=== PATIENT | female | born 1960 | race Caucasian/White ===

== ENCOUNTER 2017-08-17 17:35 | Emergency (ER) | payer BC ==
[2017-08-17 17:35] VITALS: BMI 28.9
[2017-08-17] MEDS ORDERED: Oxycodone/Acetaminophen 5/325 mg Tab PO STA (17:57)
[2017-08-17] MEDS ORDERED: Oxycodone/Acetaminophen 5/325 mg Tab ONE (18:05)
--- NOTE | 2017-08-17 18:21 | C.PDOC ---
History Of Present Illness 56-year-old female, presents to the emergency department with complaints of 10- day hx of right-upper shoulder and chest wall pain, that is worse with movement. Patient states she is taking Motrin with minimal relief. Patient is right hand dominant. Denies injuries, cough, trauma, or any other associated symptoms. No other complaints at this time. Chief Complaint (Nursing): Upper Extremity Problem/Injury History Per: Patient History/Exam Limitations: no limitations Current Symptoms Are (Timing): Still Present Past Medical History Reviewed: Historical Data, Nursing Documentation, Vital Signs Vital Signs: Last Vital Signs Temp 97.4 F L 08/17/17 17:38 Pulse 65 08/17/17 17:38 Resp 19 08/17/17 17:38 BP 123/80 08/17/17 17:38 Pulse Ox 100 08/17/17 18:31 - Medical History PMH: Back Problems (herniated disc), Kidney Stones Surgical History: Cholecystectomy, - [facility] Procedures D & C [facility] (03/10/14) Family History: States: No Known Family Hx - Social History Hx Tobacco Use: No Hx Alcohol Use: No Hx Substance Use: No - Immunization History Hx Tetanus Toxoid Vaccination: No Hx Influenza Vaccination: No Hx Pneumococcal Vaccination: No Review Of Systems Cardiovascular: Positive for: Chest Pain Musculoskeletal: Positive for: Shoulder Pain (right) Physical Exam - Physical Exam Appears: Non-toxic, No Acute Distress Skin: Warm, Dry, No Rash Nose: Normal Oral Mucosa: Moist Lips: Normal Appearing Neck: Normal ROM Chest: Symmetrical, Tenderness (chest wall) Cardiovascular: Rhythm Regular, No Murmur Respiratory: Normal Breath Sounds, No Accessory Muscle Use Extremity: Normal ROM, Other (right anterior shoulder tenderness. Worse w/ movement of right arm) Neurological/Psych: Oriented x3, Normal Speech ED Course And Treatment ECG: Interpreted By Me, Viewed By Me ECG Rhythm: Sinus Rhythm ECG Interpretation: No Acute Changes Interpretation Of ECG: Normal intervals Rate From EC O2 Sat by Pulse Oximetry: 100 - Radiology CXR: Interpreted by Me, Viewed By Me CXR Interpretation: Yes: No Acute Disease - Other Rad XR Shouder: Right X-Ray: Viewed By Me, Read By Radiologist Interpretation: No active disease Disposition - Disposition Disposition: HOME/ ROUTINE Disposition Time: 18:35 Condition: IMPROVED Additional Instructions: follow up with your doctor in 2 days call to make an appointment take medications as prescribed return to hospital if symptoms worsens or progress Prescriptions: Acetaminophen/Codeine [Tylenol/Codeine 300 MG/30 MG] 1 tab PO Q6H PRN #12 tab PRN Reason: Pain, Severe (8-10) Naproxen [Naprosyn] 500 mg PO BID PRN #16 tab PRN Reason: Pain, Moderate (4-7) Instructions: Musculoskeletal Pain (ED) - Clinical Impression Clinical Impression: Shoulder pain - Scribe Statement The provider has reviewed the documentation as recorded by the Scribe All medical record entries made by the Scribe were at my direction and personally dictated by me. I have reviewed the chart and agree that the record accurately reflects my personal performance of the history, physical exam, medical decision making, and the department course for this patient. I have also personally directed, reviewed, and agree with the discharge instructions and disposition.
--- NOTE | 2017-08-17 18:30 | C.PDOC ---
Chief Complaint (Nursing): Upper Extremity Problem/Injury Past Medical History Vital Signs: Last Vital Signs Temp 97.4 F L 08/17/17 17:38 Pulse 65 08/17/17 17:38 Resp 19 08/17/17 17:38 BP 123/80 08/17/17 17:38 Pulse Ox 100 08/17/17 17:38 - Medical History PMH: Back Problems (herniated disc), Kidney Stones Surgical History: Cholecystectomy, - [facility] Procedures D & C [facility] (03/10/14) Family History: States: Unknown Family Hx - Social History Hx Tobacco Use: No Hx Alcohol Use: No Hx Substance Use: No - Immunization History Hx Tetanus Toxoid Vaccination: No Hx Influenza Vaccination: No Hx Pneumococcal Vaccination: No ED Course And Treatment O2 Sat by Pulse Oximetry: 100 Disposition - Disposition
[2017-08-17 18:44] VITALS: BP 116/68; PULSE 69; RESP 18; TEMP 98.2; O2SAT 98
--- NOTE | 2017-08-18 08:55 | RAD ---
HISTORY: cough COMPARISON: No prior. TECHNIQUE: Chest PA and lateral FINDINGS: LUNGS: Diffuse increased chronic interstitial lung markings. Nodular and consolidative changes at the left lung base. Bibasilar breast and nipple shadows. Right apical pleural thickening. PLEURA: No significant pleural effusion identified. No pneumothorax apparent. CARDIOVASCULAR: Normal. OSSEOUS STRUCTURES: No significant abnormalities. VISUALIZED UPPER ABDOMEN: Surgical clips in the upper abdomen. OTHER FINDINGS: None. IMPRESSION: Diffuse increased chronic interstitial lung markings. Nodular and consolidative changes at the left lung base. Bibasilar breast and nipple shadows. Right apical pleural thickening.
--- NOTE | 2017-08-18 08:56 | RAD ---
Right shoulder three views History: Shoulder pain. Comparison: None available. Findings: Mild narrowing of the right glenohumeral joint space. No evidence for acute displaced fracture or dislocation. Impression: Mild degenerative changes. If pain persists, consider MRI.
== END 2017-08-17 18:44 | disposition home or self-care (01) ==
LOC: C.ER 17:35
DX: M25.511 Pain in right shoulder (principal)

== ENCOUNTER 2017-11-11 19:21 | Emergency (ER) | payer BC ==
[2017-11-11 19:22] VITALS: BMI 28.9
[2017-11-11] MEDS ORDERED: Sodium Chloride 0.9% 1,000 ML IV ONE (20:12)
[2017-11-11 21:04] LABS: BASO # 0.1 K/uL (0.0-0.2); BASO % 0.9 % (0.0-2.0); EOS # 0.1 K/uL (0.0-0.7); EOS % 1.3 % (0.0-4.0); HEMOGLOBIN 13.3 g/dL (11.0-16.0); LYMPH # 0.9 K/uL (1.0-4.3); LYMPH % 11.9 % (20.0-40.0); MEAN CELL VOLUME 92.9 fL (81.0-99.0); MEAN CORPUSCULAR HEMOGLOBIN 31.7 pg (27.0-31.0); MEAN CORPUSCULAR HGB CONC 34.2 g/dL (33.0-37.0); MEAN PLATELET VOLUME 9.8 fL (7.2-11.7); MONO # 0.5 K/uL (0.0-0.8); MONO % 6.7 % (0.0-10.0); NEUT # 5.7 K/uL (1.8-7.0); NEUT % 79.2 % (50.0-75.0); RBC 4.19 Mil/uL (3.80-5.20); RED CELL DISTRIBUTION WIDTH 13.4 % (11.5-14.5); WHITE BLOOD COUNT 7.1 K/uL (4.8-10.8)
--- NOTE | 2017-11-11 21:08 | C.PDOC ---
History Of Present Illness 57 year old female with no relevant PMHx presents to the ED c/o non productive cough, fever, and body aches for the past 2 days. Patient denies nausea, vomit, chills, recent travel, sick contacts. Time Seen by Provider: 11/11/17 20:01 Chief Complaint (Nursing): Flu-like Symptoms History Per: Patient History/Exam Limitations: no limitations Onset/Duration Of Symptoms: Days Current Symptoms Are (Timing): Still Present Location Of Pain: Diffuse Myalgias Sick Contacts (Context): None Associated Symptoms: Fever, Cough, Sputum, Myalgias Recent travel outside of the [place]: No Additional History Per: Patient Past Medical History Reviewed: Historical Data, Nursing Documentation, Vital Signs Vital Signs: Last Vital Signs Temp 98.5 F 11/11/17 22:12 Pulse 80 11/11/17 22:12 Resp 18 11/11/17 22:12 BP 112/74 11/11/17 22:12 Pulse Ox 99 11/11/17 22:12 - Medical History PMH: Back Problems (herniated disc), Kidney Stones Surgical History: Cholecystectomy, - [facility] Procedures D & C [facility] (03/10/14) Family History: States: Unknown Family Hx - Social History Hx Tobacco Use: No Hx Alcohol Use: No Hx Substance Use: No - Immunization History Hx Tetanus Toxoid Vaccination: No Hx Influenza Vaccination: No Hx Pneumococcal Vaccination: No Review Of Systems Constitutional: Positive for: Fever, Other (body aches). Negative for: Chills Cardiovascular: Negative for: Chest Pain, Palpitations Respiratory: Positive for: Cough. Negative for: Shortness of Breath Gastrointestinal: Negative for: Nausea, Vomiting, Abdominal Pain Genitourinary: Negative for: Dysuria, Hematuria Skin: Negative for: Rash Neurological: Negative for: Weakness, Numbness Physical Exam - Physical Exam Appears: Non-toxic, No Acute Distress, Other (febrile) Skin: Normal Color, Warm, Dry Head: Atraumatic, Normacephalic Eye(s): bilateral: Normal Inspection Nose: No Discharge, No Deformity Oral Mucosa: Moist Throat: Normal, No Erythema, No Exudate Neck: Normal ROM, Supple Chest: Symmetrical Cardiovascular: Rhythm Regular, No Murmur Respiratory: Normal Breath Sounds, No Rales, No Rhonchi, No Wheezing Gastrointestinal/Abdominal: Soft, No Tenderness, No Guarding, No Rebound Extremity: Normal ROM, No Pedal Edema, No Calf Tenderness, No Deformity, No Swelling Neurological/Psych: Oriented x3, Normal Speech, Normal Cognition Gait: Steady ED Course And Treatment - Laboratory Results Result Diagrams: 11/11/17 20:57 11/11/17 20:57 ECG: Interpreted By Me, Viewed By Me ECG Rhythm: Sinus Rhythm Interpretation Of ECG: Normal intervals, normal axis, no ST or T wave abnormalities Rate From EC O2 Sat by Pulse Oximetry: 97 (On RA) Pulse Ox Interpretation: Normal Medical Decision Making Medical Decision Making: Impression : cough, fever, body aches Plan: * EKG * Labs * CXR * Influenza A B * Patient is + for * IV fluids * Tamiflu 75 mg PO * Toradol 30 mg IVP * Tylenol 975 mg PO patient states improvement in symptoms, will discharge home to follow up with pmd in 2 days Disposition Counseled Patient/Family Regarding: Studies Performed, Diagnosis, Need For Followup, Rx Given - Disposition Disposition: HOME/ ROUTINE Disposition Time: 21:30 Condition: STABLE Additional Instructions: follow up with your doctor in 2 days call to make an appointment rest, plenty of fluids take medications as prescribed return to ER if symptoms worsens or progress Prescriptions: Naproxen [Naprosyn] 500 mg PO BID PRN #16 tab PRN Reason: Pain, Moderate (4-7) Oseltamivir Phosphate [Tamiflu] 75 mg PO BID #10 capsule Instructions: Influenza (ED) Forms: [facility] (Telugu), General Discharge Instructions - Clinical Impression Clinical Impression: Influenza - Scribe Statement The provider has reviewed the documentation as recorded by the Scribe Adonis Mcmahon All medical record entries made by the Scribe were at my direction and personally dictated by me. I have reviewed the chart and agree that the record accurately reflects my personal performance of the history, physical exam, medical decision making, and the department course for this patient. I have also personally directed, reviewed, and agree with the discharge instructions and disposition.
[2017-11-11 21:15] LABS: ALB/GLOB RATIO 1.2 (1.0-2.1); ALT/SGPT 52 U/L (9-52); AST/SGOT 54 U/L (14-36); BLOOD UREA NITROGEN 8 mg/dL (7-17); CALCIUM 8.5 mg/dl (8.6-10.4); GFR AFRICAN-AMERICAN > 60; GFR NON-AFRICAN AMERICAN > 60
[2017-11-11 22:13] VITALS: BP 112/74; PULSE 80; RESP 18; TEMP 98.5
[2017-11-12 00:14] VITALS: O2SAT 97
--- NOTE | 2017-11-12 09:09 | RAD ---
HISTORY: COMPARISON: 08/17/2017 TECHNIQUE: Chest PA and lateral FINDINGS: LINES AND TUBES: None. LUNG AND PLEURA: The lungs are well inflated and clear. HEART AND MEDIASTINUM: The heart is not enlarged. The hilar and mediastinal contours are within normal limits. SKELETAL STRUCTURES: The bony structures are within normal limits for the patient's age. VISUALIZED UPPER ABDOMEN: Normal. OTHER FINDINGS: None. IMPRESSION: No active pulmonary disease.
--- NOTE | 2017-11-13 10:35 | CARD ---
APPROVED REPORT EKG Measurement Heart [id number] ND [id number] <Conclusion> Normal sinus rhythm Normal ECG
== END 2017-11-11 22:12 | disposition home or self-care (01) ==
LOC: C.ER 19:21
DX: J11.1 Influenza due to unidentified influenza virus with other respiratory manifestations (principal)
CPT/HCPCS: 71046; 80053; 84484; 85025; 87804; 96361; 96374; 99284; J1885; J7040

== ENCOUNTER 2018-02-15 14:21 | Emergency (ER) | payer BC ==
[2018-02-15 14:21] VITALS: BMI 28.9
[2018-02-15 14:35] VITALS: RESP 18
[2018-02-15] MEDS ORDERED: Lidocaine 5% Patch TD STA (14:43)
[2018-02-15] MEDS ORDERED: Lidocaine 5% Patch TD ONE (14:56)
[2018-02-15 15:21] LABS: SQUAMOUS EPITHIAL 4 /hpf (0-5); URINE BACTERIA RARE (<OCC); URINE BILIRUBIN NEGATIVE (NEGATIVE); URINE BLOOD NEGATIVE (NEGATIVE); URINE CLARITY Hazy (Clear); URINE COLOR Amber (YELLOW); URINE GLUCOSE (UA) NORMAL (Normal); URINE LEUKOCYTE ESTERASE TRACE Leu/uL (Negative); URINE PROTEIN NEGATIVE (NEGATIVE)
--- NOTE | 2018-02-15 15:53 | C.PDOC ---
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 Patient took Advil without relief. She denies fever, chills, urinary/bowel incontinence, extremity numbness/weakness, or any recent falls, injury or trauma. Time Seen by Provider: 02/15/18 14:43 Chief Complaint (Nursing): Back Pain History Per: Patient History/Exam Limitations: no limitations Onset/Duration Of Symptoms: Hrs Current Symptoms Are (Timing): Still Present Quality Of Discomfort: "Pain" Previous Symptoms: Back Pain Associated Symptoms: denies: Incontinence, New Weakness, New Numbness Additional History Per: Patient Past Medical History Reviewed: Historical Data, Nursing Documentation, Vital Signs Vital Signs: Last Vital Signs Temp 97.6 F 02/15/18 15:54 Pulse 71 02/15/18 15:54 Resp 18 02/15/18 15:54 BP 124/84 02/15/18 15:54 Pulse Ox 97 02/15/18 17:16 - Medical History PMH: Back Problems (herniated disc), Kidney Stones Surgical History: [facility], - [facility] (03/10/14) Family History: States: Unknown Family Hx - Social History Hx Tobacco Use: No Hx Alcohol Use: No Hx Substance Use: No - Immunization History Hx Tetanus Toxoid Vaccination: No Hx Influenza Vaccination: No Hx Pneumococcal Vaccination: No Review Of Systems Genitourinary: Negative for: Incontinence Musculoskeletal: Positive for: Back Pain (lower ) Neurological: Negative for: Weakness, Numbness Physical Exam - Physical Exam Appears: Non-toxic, Other (uncomfortable ) Skin: Normal Color, Warm, Dry Head: Atraumatic, Normacephalic Eye(s): bilateral: Normal Inspection Oral Mucosa: Moist Neck: Supple Chest: Symmetrical, No Deformity, No Tenderness Cardiovascular: Rhythm Regular, No Murmur Respiratory: Normal Breath Sounds, No Rales, No Rhonchi, No Wheezing Back: No Vertebral Tenderness, No Muscle Spasm, Paraspinal Tenderness (lumbar ) Extremity: Normal ROM, No Tenderness, Capillary Refill (less than 2 seconds ), No Deformity, No Swelling Neurological/Psych: Oriented x3, Normal Speech, Normal Cognition Gait: Steady ED Course And Treatment O2 Sat by Pulse Oximetry: 97 (on RA) Pulse Ox Interpretation: Normal Medical Decision Making Medical Decision Making: Impression: 57 year old female with lower back pain Plan: * Urinalysis * Toradol IM * Valium PO * Lidoderm TD * reassess and disposition Progress: Urinalysis ordered and reviewed. Toradol IM, Valium PO, and Lidoderm TD administered. On reassessment, patient is resting comfortably, showing no signs of distress, and is ambulatory in the ED with a steady gait. Patient reports an improvement in her symptoms and is stable for discharge. She is advised to follow up with her PMD within 1-2 days for further evaluation and/or return to the ED if symptoms persist or worsen. Disposition Counseled Patient/Family Regarding: Diagnosis, Need For Followup, Rx Given - Disposition Referrals: Meet Joshua MD [Medical Doctor] - Disposition: HOME/ ROUTINE Disposition Time: 15:50 Condition: IMPROVED Additional Instructions: Apply heat to area 15 minutes three times a day. Take Motrin as needed for pain every 6 hours, with food to not upset stomach. Take valium for muscle pain and spasm, caution can cause drowsiness. Follow up with orthopedic if pain persists over one week. Prescriptions: diaZEpam [Valium] 5 mg PO Q8 #12 tab Ibuprofen [Motrin] 600 mg PO Q8 #30 tab Lidocaine [Anecream] 5 gm TP Q12 #1 cream..g. 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 - Scribe Statement The provider has reviewed the documentation as recorded by the Scribe (Rosaline Cebalols) All medical record entries made by the Scribe were at my direction and personally dictated by me. I have reviewed the chart and agree that the record accurately reflects my personal performance of the history, physical exam, medical decision making, and the department course for this patient. I have also personally directed, reviewed, and agree with the discharge instructions and disposition.
[2018-02-15 15:58] VITALS: BP 124/84; PULSE 71; TEMP 97.6
[2018-02-15 17:12] VITALS: O2SAT 97
== END 2018-02-15 15:55 | disposition home or self-care (01) ==
LOC: C.ER 14:21
DX: M54.5 Low back pain (principal)
CPT/HCPCS: 81001; 96372; 99284; J1885

== ENCOUNTER 2018-05-17 13:35 | Emergency (ER) | payer BC ==
[2018-05-17 13:35] VITALS: BMI 28.9
[2018-05-17 13:40] VITALS: TEMP 98.2
--- NOTE | 2018-05-17 13:48 | C.PDOC ---
History Of Present Illness 57 year old female presents to ED for evaluation of recurrent bilateral lower back pain for the last 4 days. Notes pain radiates to bilateral groin and is worse with movement. Denies trauma. Notes having similar episodes in the past but states this time pain is not relieved by Advil. Denies trying any other medication today. Pt is requesting "similar medication like last time". Pt was seen here in January for similar symptoms and was given Toradol and Valium. In the past, patient did not have relief with dermal patch. Denies extremity weakness, numbness, abdominal pain, bladder/bowel incontinence, urinary symptoms , or fever. Time Seen by Provider: 05/17/18 13:44 Chief Complaint (Nursing): Back Pain History Per: Patient History/Exam Limitations: no limitations Past Medical History Reviewed: Historical Data, Nursing Documentation, Vital Signs Vital Signs: Last Vital Signs Temp 98.2 F 05/17/18 13:40 Pulse 84 05/17/18 13:40 Resp 20 05/17/18 13:40 BP 97/69 L 05/17/18 13:40 Pulse Ox 96 05/17/18 14:00 - Medical History PMH: Back Problems (herniated disc), Kidney Stones Surgical History: Cholecystectomy, - [facility] Procedures D & C [facility] (03/10/14) Family History: States: Unknown Family Hx - Social History Hx Tobacco Use: No Hx Alcohol Use: No Hx Substance Use: No - Immunization History Hx Tetanus Toxoid Vaccination: No Hx Influenza Vaccination: No Hx Pneumococcal Vaccination: No Review Of Systems Except As Marked, All Systems Reviewed And Found Negative. Constitutional: Negative for: Fever, Chills Gastrointestinal: Negative for: Nausea, Vomiting, Abdominal Pain Genitourinary: Negative for: Dysuria, Frequency, Hematuria Musculoskeletal: Positive for: Back Pain Neurological: Negative for: Weakness, Numbness Physical Exam - Physical Exam Appears: Non-toxic, Other (In mild distress) Skin: Normal Color, Warm, Dry Head: Atraumatic, Normacephalic Eye(s): bilateral: Normal Inspection Oral Mucosa: Moist Neck: Normal ROM, Supple Cardiovascular: Rhythm Regular, No Murmur Respiratory: Normal Breath Sounds, No Rales, No Rhonchi, No Wheezing Gastrointestinal/Abdominal: Soft, No Tenderness Back: No Vertebral Tenderness, Decreased ROM (secondary to pain), No Paraspinal Tenderness Extremity: Normal ROM, No Deformity Neurological/Psych: Oriented x3, Normal Speech ED Course And Treatment O2 Sat by Pulse Oximetry: 96 (RA) Pulse Ox Interpretation: Normal Progress - Re-Evaluation Re-evaluation Note: 05/17/18 14:25 ASYMPT FEELS BETTER - Data Reviewed Data Reviewed: Old records Medical Decision Making Medical Decision Making: Plan: Toradol Valium Tylenol Reassess Disposition Counseled Patient/Family Regarding: Diagnosis, Need For Followup, Rx Given - Disposition Referrals: YOUR,PMD [Other] Disposition: HOME/ ROUTINE Disposition Time: 14:26 Condition: IMPROVED Additional Instructions: TAKE ADVIL 3 TABS EVERY 6-8 HOURS AND TYLENOL DIRECTED FOR PAIN. Prescriptions: diaZEpam [Valium] 5 mg PO TID PRN #15 tab PRN Reason: Muscle Spasm Instructions: Low Back Pain (DC) Forms: [facility] (Kinyarwanda) - Clinical Impression Clinical Impression: Low back pain - Scribe Statement The provider has reviewed the documentation as recorded by the Scribe KP All medical record entries made by the Scribe were at my direction and personally dictated by me. I have reviewed the chart and agree that the record accurately reflects my personal performance of the history, physical exam, medical decision making, and the department course for this patient. I have also personally directed, reviewed, and agree with the discharge instructions and disposition.
[2018-05-17 14:33] VITALS: BP 105/65; PULSE 82; RESP 16; O2SAT 99
== END 2018-05-17 14:31 | disposition home or self-care (01) ==
LOC: C.ER 13:35
DX: M54.5 Low back pain (principal)
CPT/HCPCS: 96372; 99284; J1885

== ENCOUNTER 2018-09-15 13:06 | Emergency (ER) | payer BC ==
[2018-09-15 13:06] VITALS: BMI 28.9
[2018-09-15 13:18] VITALS: RESP 18
[2018-09-15] MEDS ORDERED: Sodium Chloride 0.9% 1,000 ML IV ONE (13:57)
[2018-09-15] MEDS ORDERED: Sodium Chloride 0.9% 1,000 ML ONE (14:11)
[2018-09-15 14:27] LABS: BASO # 0.1 K/uL (0.0-0.2); BASO % 0.8 % (0.0-2.0); EOS # 0.2 K/uL (0.0-0.7); EOS % 2.4 % (0.0-4.0); HEMOGLOBIN 14.2 g/dL (11.0-16.0); LYMPH # 2.8 K/uL (1.0-4.3); LYMPH % 41.1 % (20.0-40.0); MEAN CELL VOLUME 91.9 fL (81.0-99.0); MEAN CORPUSCULAR HEMOGLOBIN 31.6 pg (27.0-31.0); MEAN CORPUSCULAR HGB CONC 34.3 g/dL (33.0-37.0); MEAN PLATELET VOLUME 10.3 fL (7.2-11.7); MONO # 0.5 K/uL (0.0-0.8); MONO % 7.7 % (0.0-10.0); NEUT # 3.3 K/uL (1.8-7.0); NRBC % 0.1 % (0.0-2.0); RBC 4.5 Mil/uL (3.80-5.20); RED CELL DISTRIBUTION WIDTH 13.2 % (11.5-14.5); WHITE BLOOD COUNT 6.9 K/uL (4.8-10.8)
[2018-09-15 14:31] LABS: SQUAMOUS EPITHIAL 2 /hpf (0-5); URINE BILIRUBIN NEGATIVE (NEGATIVE); URINE BLOOD NEGATIVE (NEGATIVE); URINE CLARITY Clear (Clear); URINE COLOR Yellow (YELLOW); URINE GLUCOSE (UA) NORMAL (Normal); URINE LEUKOCYTE ESTERASE TRACE Leu/uL (Negative); URINE PROTEIN 1+ mg/dL (NEGATIVE); URINE UROBILINOGEN NORMAL mg/dL (0.2-1.0)
[2018-09-15 14:40] LABS: ALB/GLOB RATIO 1.5 (1.0-2.1); ALBUMIN 4.3 g/dL (3.5-5.0); ALT/SGPT 45 U/L (9-52); AST/SGOT 44 U/L (14-36); BLOOD UREA NITROGEN 9 mg/dL (7-17); CALCIUM 9.8 mg/dl (8.6-10.4); GFR NON-AFRICAN AMERICAN > 60; LIPASE 43 U/L (23-300)
--- NOTE | 2018-09-15 15:15 | C.PDOC ---
History Of Present Illness 57 y/o female presents to the ER complaining of colicky periumbilical abdominal pain which has been present for the past 1 week.Patient states that she suffers from chronic constipation. Patient denies having fever, chills, nausea, vomiting, dysuria, and hematuria. Time Seen by Provider: 09/15/18 13:41 Chief Complaint (Nursing): Abdominal Pain History Per: Patient History/Exam Limitations: no limitations Onset/Duration Of Symptoms: Days Current Symptoms Are (Timing): Still Present Severity: Moderate Past Medical History Reviewed: Historical Data, Nursing Documentation, Vital Signs Vital Signs: Last Vital Signs Temp 98.1 F 09/15/18 13:15 Pulse 73 09/15/18 13:15 Resp 18 09/15/18 13:15 BP 104/74 09/15/18 13:15 Pulse Ox 99 09/15/18 13:15 - Medical History PMH: Back Problems (herniated disc), Kidney Stones Surgical History: Cholecystectomy, - [facility] Procedures D & C [facility] (03/10/14) Family History: States: No Known Family Hx - Social History Hx Tobacco Use: No Hx Alcohol Use: No Hx Substance Use: No - Immunization History Hx Tetanus Toxoid Vaccination: No Hx Influenza Vaccination: No Hx Pneumococcal Vaccination: No Review Of Systems Except As Marked, All Systems Reviewed And Found Negative. Constitutional: Negative for: Fever, Chills Gastrointestinal: Positive for: Abdominal Pain, Constipation. Negative for: Nausea, Vomiting Genitourinary: Negative for: Dysuria, Hematuria Physical Exam - Physical Exam Appears: No Acute Distress Skin: Normal Color, Warm, Dry Head: Atraumatic, Normacephalic Eye(s): bilateral: Normal Inspection Nose: Normal Oral Mucosa: Moist Neck: Supple Chest: Symmetrical Cardiovascular: Rhythm Regular Respiratory: Normal Breath Sounds, No Rales, No Rhonchi, No Wheezing Gastrointestinal/Abdominal: Soft, Tenderness (periumbilical tenderness), No Guarding, No Rebound, Other (alternating dull and tympanic to percussion) Neurological/Psych: Oriented x3, Normal Speech ED Course And Treatment - Laboratory Results Result Diagrams: 09/15/18 14:22 09/15/18 14:22 Lab Interpretation: Normal (ua neg.) O2 Sat by Pulse Oximetry: 99 (RA) Pulse Ox Interpretation: Normal - Radiology CXR: Interpreted by Me CXR Interpretation: Yes: No Acute Disease - Other Rad abd x 2 X-Ray: Interpreted by Me (+FOS) Reevaluation Time: 15:15 Reassessment Condition: Improved Medical Decision Making Medical Decision Making: acute on chronic constipation, ? GERD/GAstritis Pepcid diet/exercise changes occ laxatives. Disposition Doctor Will See Patient In The: Office Counseled Patient/Family Regarding: Studies Performed, Diagnosis - Disposition Referrals: [facility] [Outside] [facility] [Outside] [facility] [Outside] [facility] [Outside] Disposition: HOME/ ROUTINE Disposition Time: 15:15 Condition: GOOD Additional Instructions: Constipation: drink a laxative now Recommend drink entire bottle of Mag Citrate re-evaluate abdominal discomfort after using the bathroom 2-3 times diet and exercise changes 45 min power walk 5 days/week drink more water GERD: pepcid 20 mg @ night to lower stomach acid diet hygiene consider outpatient GI eval Consider upper endoscopy as needed. Instructions: Constipation, Adult (DC), Gas and Bloating (ED) Forms: [facility] (Uzbek) - Clinical Impression Clinical Impression: Colicky periumbilical abdominal pain - Scribe Statement The provider has reviewed the documentation as recorded by the Scribe Michael Kenney Provider Attestation: All medical record entries made by the Scribe were at my direction and personally dictated by me. I have reviewed the chart and agree that the record accurately reflects my personal performance of the history, physical exam, medical decision making, and the department course for this patient. I have also personally directed, reviewed, and agree with the discharge instructions and disposition.
--- NOTE | 2018-09-15 15:23 | RAD ---
Date of service: 09/15/2018 PROCEDURE: Radiographs of the chest and abdomen (obstructive series) HISTORY: Abdominal pain. COMPARISON: No prior. TECHNIQUE: AP radiograph of the chest, with upright and supine radiographs of the abdomen. FINDINGS: CHEST: Lungs: Clear. Cardiovascular: Normal size heart. No pulmonary vascular congestion. No aortic atherosclerotic calcification present Pleura: No pleural fluid. No pneumothorax. Other findings: None. ABDOMEN AND PELVIS: Bowel: Unremarkable bowel gas pattern. No evidence of mechanical obstruction. Free air: None. Bones: Unremarkable. Other findings: None. IMPRESSION: Unremarkable radiographs of chest and abdomen. No evidence of mechanical bowel obstruction. Concordant results with the preliminary interpretation rendered by the emergency department physician procedure.
[2018-09-15 15:38] VITALS: BP 122/81; PULSE 60; TEMP 97.5
[2018-09-15 16:21] VITALS: O2SAT 99
== END 2018-09-15 15:37 | disposition home or self-care (01) ==
LOC: C.ER 13:06
DX: R10.33 Periumbilical pain (principal)
CPT/HCPCS: 74022; 80053; 81001; 83690; 85025; 96361; 96374; 99284; J1885; J7030